=== PATIENT | female | born 1990 | race Two or more races ===

== ENCOUNTER 2024-09-08 09:20 | Day surgery (SDC) | payer MEDICAID, SELFPAY ==
[2024-09-08] VITALS (9 sets, daily range): BP systolic 110–152; BP diastolic 70–108; PULSE 61–88; RESP 9–21; TEMP 36.2–36.6; O2SAT 95–100; BMI 36.7
[2024-09-08] MEDS: SODIUM CHLORIDE 0.9% 500 ML 100 ML 20 ML IV (11:08)
[2024-09-08] MEDS: DiphenhydrAMINE INJ 50 MG/ML VIAL 25 MG IV (11:13)
[2024-09-08] MEDS: fentaNYL CIT INJ 50 mCg/ML AMP 2ML (ASD USE ONLY) IV (11:20)
[2024-09-08] MEDS: MIDAZOLAM INJ 1 MG/ML VIAL 2 ML (ASD USE ONLY) 2 MG IV (11:20)
--- NOTE | 2024-09-08 11:48 | SUR.PHASEII ---
1136: Pt received for recovery. Report from Lianna GURROLA. Pt sleepy. Easily aroused. Resp even, unlabored. VS stable. No c/o pain, discomfort. 1150: Report to Mustapha GURROLA.
== END 2024-09-08 12:18 | disposition home or self-care (01) ==
PROVIDERS: PCP Family Medicine; Referring Provider Internal Medicine Gastroenterology; Visit Provider Internal Medicine Gastroenterology
PROC: 0DBE8ZX Excision of Large Intestine, Via Natural or Artificial Opening Endoscopic, Diagnostic (ICD-10-PCS; CPT 45380; principal; 2024-09-08 10:45)
DX: K64.8 Other hemorrhoids (principal); K91.5 Postcholecystectomy syndrome
CPT/HCPCS: 45380; A4217; A4649; J1200; J2250; J3010; J7040

== ENCOUNTER 2024-09-22 08:40 | Day surgery (SDC) | payer MEDICAID, SELFPAY ==
[2024-09-22] VITALS (7 sets, daily range): BP systolic 123–158; BP diastolic 89–112; PULSE 68–93; RESP 16–20; TEMP 36.2–36.6; O2SAT 95–99; BMI 34.5
[2024-09-22] MEDS: SODIUM CHLORIDE 0.9% 250 ML 250 ML 125 ML IV (09:45)
[2024-09-22] MEDS: BENZOCAINE 20% (Hurricaine) SPRAY 1 DOSE TOP (09:48)
[2024-09-22] MEDS: fentaNYL CIT INJ 50 mCg/ML AMP 2ML (ASD USE ONLY) IV (09:50)
[2024-09-22] MEDS: MIDAZOLAM INJ 1 MG/ML VIAL 2 ML (ASD USE ONLY) 2 MG IV (09:50)
[2024-09-22] MEDS: DiphenhydrAMINE INJ 50 MG/ML VIAL 25 MG IV (09:50)
== END 2024-09-22 10:30 | disposition home or self-care (01) ==
PROVIDERS: PCP Family Medicine; Referring Provider Internal Medicine Gastroenterology; Visit Provider Internal Medicine Gastroenterology
PROC: (CPT 43239; principal; 2024-09-22 08:45)
DX: K29.60 Other gastritis without bleeding (principal); K44.9 Diaphragmatic hernia without obstruction or gangrene; D50.0 Iron deficiency anemia secondary to blood loss (chronic); K31.89 Other diseases of stomach and duodenum; K29.50 Unspecified chronic gastritis without bleeding
CPT/HCPCS: 43239; 81025; A4649; J1200; J2250; J3010; J7050; A9270